=== PATIENT | female | born 1955 | race Caucasian/White ===

== ENCOUNTER 2024-04-12 09:10 | Emergency (ER) | payer OTHER, MEDICARE ==
[~2024-04-12] VITALS: Ht 167.6 cm; Wt 109.8 kg
== END 2024-04-12 11:09 | disposition home or self-care (01) ==
LOC: ER 09:10
DX: S80.02XA Contusion of left knee, initial encounter (principal); I10 Essential (primary) hypertension; W01.0XXA Fall on same level from slipping, tripping and stumbling without subsequent striking against object, initial encounter
CPT/HCPCS: 73560-LT; 99283-25

== ENCOUNTER 2024-04-14 07:09 | Inpatient (IN) | payer MEDICARE ==
[~2024-04-14] VITALS: Ht 167.6 cm; Wt 107.0 kg
[2024-04-14] MEDS ORDERED: ACET325 PO (07:39)
[2024-04-14] MEDS ORDERED: Ipratropium/Albuterol SulF 2.5-0.5MG/3 ML Amp INH ONE (08:30)
[2024-04-14] MEDS ORDERED: MethylPREDNISolone Sod Succ 125 MG Vial IV ONE (08:30)
[2024-04-14] MEDS ORDERED: Morphine Sulfate 4 MG/1 ML Injection IV ONE (08:35)
[2024-04-14 09:48] LABS: Source, Urine Clean Catch
[2024-04-14 09:50] LABS: BASOPHILS ABSOLUTE AUTO 0.04 K/mm3 (0.00-0.23); BASOPHILS PERCENT AUTO 1 % (0-2); EOSINOPHILS ABSOLUTE AUTO 0.01 K/mm3 (0.00-0.68); EOSINOPHILS PERCENT AUTO 0 % (0-6); Hematocrit 38.7 % (33.0-51.0); Hemoglobin 12.2 g/dL (11.5-16.0); IMMATURE GRAN ABSOLUTE AUTO 0.08 K/mm3 (0.00-0.10); IMMATURE GRAN PERCENT AUTO 1 % (0-1); LYMPHOCYTES ABSOLUTE AUTO 1.41 K/mm3 (0.84-5.20); LYMPHOCYTES PERCENT AUTO 18 % (21-46); MONOCYTES ABSOLUTE AUTO 0.61 K/mm3 (0.16-1.47); MONOCYTES PERCENT AUTO 8 % (4-13); Mean Corpuscular HGB 32.2 pg (26.0-34.0); Mean Corpuscular HGB Conc 31.5 g/dL (31.5-36.5); Mean Corpuscular Volume 102 fL (80-100); Mean Platelet Volume 9.3 fL (9.1-12.4); NEUTROPHILS ABSOLUTE AUTO 5.81 K/mm3 (1.96-9.15); NEUTROPHILS PERCENT AUTO 73 % (41-73); NRBC ABSOLUTE 0.08 K/mm3 (0.00-0.02); Platelet Count 204 K/mm3 (150-400); RDW Coefficient Variation 15.6 % (11.7-14.2); RDW Standard Deviation 57.4 fL (35.1-46.3); Red Blood Cell Count 3.79 M/mm3 (3.80-5.20); White Blood Cell Count 7.96 K/mm3 (4.00-11.30)
[2024-04-14 09:51] LABS: Appearance, Urine Clear (Clear); Bilirubin, Urine Neg (Neg); Blood, Urine 1+ (Neg); Color, Urine Yellow (P-Yellow); Glucose Qualitative, Urine Neg (Neg); Ketones, Urine 1+ (Neg); Leukocyte Esterase, Urine Neg (Neg); Nitrite, Urine Neg (Neg); Protein, Urine 2+ (Neg); Urobilinogen, Urine 1+ (Normal)
[2024-04-14 10:00] LABS: Amorphous Light (0-Heavy); Bacteria Few /hpf; Hyaline Casts 0-2 /lpf (0-2); Squamous Epithelial Cells Few /hpf (Few); White Blood Cells, Urine 0-2 /hpf (0-5)
[2024-04-14 10:08] LABS: Influenza A, PCR NEGATIVE (NEGATIVE); Influenza B, PCR NEGATIVE (NEGATIVE); Resp Syncytial Virus, PCR NEGATIVE (NEGATIVE); SARS-Cov-2 (COVID-19) PCR, MMC NEGATIVE (NEGATIVE)
[2024-04-14 10:08] LABS: Bun/Creatinine Ratio 32.2 (12.0-20.0); Calcium, Blood 10.9 mg/dL (8.5-10.1); Creatinine, Blood 0.87 mg/dL (0.40-1.00); Potassium, Blood 3.5 mmol/L (3.5-5.5)
[2024-04-14] MEDS ORDERED: LORazepam 1 MG Tab PO ONE (11:20)
[2024-04-14] MEDS ORDERED: OxyCODONE 7.5 mg/Acetam 325 mg TABLET PO ONE (11:20)
[2024-04-14] MEDS ORDERED: Lactated Ringer's 1,000 ML IV ONE (15:10)
[2024-04-14] MEDS ORDERED: Lactated Ringer's 1,000 ML IV SCH (15:20)
[2024-04-14] MEDS ORDERED: FLU VACC TS2024-25(6MOS UP)/PF 45 MCG/0.5 ML SYRINGE IM PRN (15:25)
[2024-04-14] MEDS ORDERED: Naloxone HCl 0.4MG / ML 1ML Vial IV PRN (15:40)
[2024-04-14 16:09] LABS: Base Excess Venous -0.1 mmol/L; Bicarbonate Venous 24.7 mmol/L (24.0-30.0); pH Blood Venous 7.45 (7.34-7.37)
[2024-04-14] MEDS ORDERED: Ipratropium/Albuterol SulF 2.5-0.5MG/3 ML Amp INH SCH (16:35)
[2024-04-14] MEDS ORDERED: Dexamethasone Sodium Phosphate 4 MG/ML 1ML Vial IV SCH (18:00)
[2024-04-14 18:06] VITALS: BP 199/88
[2024-04-14] MEDS ORDERED: Lisinopril2.5 MG (18:07)
[2024-04-14 18:21] VITALS: BP 196/89
[2024-04-14] MEDS ORDERED: Labetalol HCL 5 MG/ML 4ML Injection (Single Dose) IV PRN (18:30)
[2024-04-14 18:45] VITALS: BP 181/79
--- NOTE | 2024-04-14 18:50 | NUR ---
PATIENT ADMIT TO PCU 03 AT 1750. ABLE TO ANSWER ALL ORIENTING QUESTIONS. PERRLA. FOLLOWING ALL SIMPLE COMMANDS. AT TIMES SAYING NONSENSICAL COMMENTS NOT RELATING TO TOPIC OR QUESTIONS ASKED. DAUGHTER AT BEDSIDE STATES HER MENTATION HAS BEEN "OFF" THE LAST COUPLE OF DAYS AND SEEMS TO BE WORSENING. PATIENT ABLE TO TELL ME DETAILS OF WHY SHE IS HERE BUT GETS SIDE TRACKED MID CONVERSATION OR FORGETS WHAT SHE IS SAYING. OVERALL WEAK AND PAINFUL WITH MOVEMENTS. DENIES PAIN WHEN LAYING ON BACK IN BED. ON ROOM AIR AT THIS TIME SATING 95-96%. SOB WITH MOVEMENTS AND TALKING. LUNGS SOUNDS CLEAR AND DIM IN BASES. STATES SHE HAD RECENT COUGH. NO COUGH NOTED AT THIS TIME. TELE SHOWING SR WITH HR 80-90'S. SBP 190'S. PATIENT STATES SHE HAS HISTORY OF HIGH BLOOD PRESSURE AND STOPPED TAKING HER HOME LISINOPRIL WEEKS AGO. PPP. LR INFUSING PER EMAR. BRUISING TO RIGHT LOWER EXTREMITIY. DR. SHARMA CALLED TO UPDATED ON ELEVATED BLOOD PRESSURE. THIS RN DISCUSSED VITALS, AND CURRENT MENTATION. DR. SHARMA TO PLACE ORDERS. IV LABETALOL GIVEN. INTIAL SBP POST LABETOLOL INFUSION 180'S. BOWEL TONES PRESENT. PATIENT DENIES ISSUES WITH SWALLOWING. INCONTINENT AT TIMES. PUREWICK IN PLACE WELL ATTENDS. NPO AT MIDNIGHT FOR BIOPSY IN AM. ORIENTED TO ROOM AND UNIT. BED ALARM ON FOR SAFETY. LOULOU HEADED BACK TO [place] THIS EVENING. DAUGHTER IS LOCAL AND PLANS TO VISIT AGAIN TOMORROW AFTER WORK. CALL LIGHT IN REACH. PATIENT LAYING IN BED AT THIS TIME, DENIES NEEDS.
[2024-04-14] MEDS ORDERED: Lisinopril 20 MG Tab PO SCH (19:00)
[2024-04-14] MEDS ORDERED: FentaNYL Citrate 50 MCG/ML 2 ML Injection IV PRN (19:50)
[2024-04-14 19:57] VITALS: BP 176/72
[2024-04-14 23:59] VITALS: BP 167/93
[2024-04-15] VITALS (7 sets, daily range): BP systolic 148–188; BP diastolic 67–107
--- NOTE | 2024-04-15 01:19 | NUR ---
PT AGITATION INCREASING. PT NOW PARANOID. VISUAL HALLUCINATIONS STILL PRESENT. NEW AUDITORY HALLUCINATIONS. PT STILL ORIENTED TO SELF. MULTIPLE ATTEMPTS ENCOURAGING PATIENT TO REST UNSUCCESSFUL. PT HAS INTERMITTENT WORD SALAD AND CONFUSED/TANGENTIAL SPEECH. PT PULLED OUT IV, REMOVED TELEMETRY MULTIPLE TIMES, REMOVED SPO2 SENSOR MULTIPLE TIMES. 1:1 SITTER REQUESTED.
--- NOTE | 2024-04-15 03:10 | NUR ---
PT HAS HTN 188/84, HR 103 AND IS GIVEN LABETOLOL PER ORDER.
[2024-04-15] MEDS ORDERED: QUEtiapine Fumarate 25 MG Tab PO ONE (03:30)
[2024-04-15 04:52] LABS: BASOPHILS ABSOLUTE AUTO 0.01 K/mm3 (0.00-0.23); BASOPHILS PERCENT AUTO 0 % (0-2); EOSINOPHILS ABSOLUTE AUTO 0.02 K/mm3 (0.00-0.68); EOSINOPHILS PERCENT AUTO 0 % (0-6); Hemoglobin 11.1 g/dL (11.5-16.0); IMMATURE GRAN PERCENT AUTO 1 % (0-1); LYMPHOCYTES ABSOLUTE AUTO 0.66 K/mm3 (0.84-5.20); LYMPHOCYTES PERCENT AUTO 9 % (21-46); MONOCYTES ABSOLUTE AUTO 0.19 K/mm3 (0.16-1.47); MONOCYTES PERCENT AUTO 3 % (4-13); Mean Corpuscular HGB 32.1 pg (26.0-34.0); Mean Corpuscular HGB Conc 32.6 g/dL (31.5-36.5); Mean Corpuscular Volume 98 fL (80-100); NEUTROPHILS PERCENT AUTO 87 % (41-73); NRBC ABSOLUTE 0.06 K/mm3 (0.00-0.02); NRBC Auto 0.8 /100 WBC (0.0-0.2); Platelet Count 188 K/mm3 (150-400); RDW Coefficient Variation 15.5 % (11.7-14.2); RDW Standard Deviation 54.7 fL (35.1-46.3); Red Blood Cell Count 3.46 M/mm3 (3.80-5.20); White Blood Cell Count 7.38 K/mm3 (4.00-11.30)
[2024-04-15 05:14] LABS: Albumin, Blood 3.1 g/dL (3.4-5.0); Albumin/Globulin Ratio 0.7 (0.8-1.8); Bilirubin, Total 0.5 mg/dL (0.1-1.0); Bun/Creatinine Ratio 30.6 (12.0-20.0); Calcium, Blood 10.3 mg/dL (8.5-10.1); Creatinine, Blood 0.69 mg/dL (0.40-1.00); Globulin, Blood 4.3 g/dL (2.2-4.0); Potassium, Blood 3.3 mmol/L (3.5-5.5); Total Protein, Blood 7.4 g/dL (6.4-8.2)
[2024-04-15] MEDS ORDERED: Potassium Chloride 10 Meq Tablet SA PO ONE (05:40)
--- NOTE | 2024-04-15 06:37 | NUR ---
PT AOX3 AT START OF SHIFT, CALM AND COOPERATIVE, THOUGH VISUAL HALLUCINATION PRESENT. THIS RN TOLD PT THAT THEY WOULD REORIENT PT TO VISUAL DISTURBANCE AND CONFIRM OR DENY PRESENCE OF ANY VISUAL PT HAD QUESTIONS ABOUT, SUCH BUGS ON THE WALL. PT WAS AGREEABLE TO THIS. SHIFT PROGRESSED PT BECOME MORE PARANOID, FREQUENCY OF VISUAL HALLUCINATIONS INCREASED, AUDITORY HALLUCINATIONS PRESENT, PT LESS COOPERATIVE. PT PULLED OUT IV LINE, REMOVED TELEMETRY AND PUREWICK TUBING MULTIPLE TIMES. PT ALSO DISASSEMBLED HEARING AIDS THAT STAFF ATTEMPTED TO REASSEMBLE. 1:1 SITTER PLACED ON PT. PT DID REFUSE PO SEROQUEL BUT DID CONTINUE TO TAKE IV DEXAMETHASONE AND PO KCL. PT WAS CALLED AT ONE TIME D/T PT YELLING FOR THE POLICE OR FBI. PT DID SEEM TO CALM THE PATIENT OVER THE PHONE. PT DID HAVE ONE EPISODE OF HTN REQUIRING PRN MEDICATION, WHICH DID RESOLVE HTN TO ACCEPTABLE LEVELS. PT CONTINUES TO BE WEAK TO LEFT LEG AND ABLE TO MOVE RIGHT LEG MUCH EASIER. UPPER EXTREMITIES WEAK B/L.
[2024-04-15] MEDS ORDERED: Lisinopril 20 MG Tab PO ONE (07:45)
[2024-04-15] MEDS ORDERED: Enoxaparin 40 MG/0.4 ML SYR SC SCH ×3 (09:00→12:00)
--- NOTE | 2024-04-15 10:13 | NUR ---
AM NOTE: PATIENT AWAKE AND SITTING UP IN BED UPON SHIFT CHANGE. THIS RN ENTERS ROOM AND PATIENT SMILES AND SAYS VEE. PATIENT ABLE TO TELL ME HER NAME, , WHERE SHE IS AND SOME DETAILS OF WHY SHE IS HERE. PATIENT TALKS SHE HAS POOR ATTENTION SPAN, GETS OFF ON TANGETS AND AT TIMES NONSENSICAL COMMENTS. NOT RETAINING SOME INFORMATION AND ASKING REPETATIVE QUESTIONS. HAVING CONVERSATIONS WITH SELF. HAVING BOTH AUDITORY AND VISUAL HALLUCINATIONS OF RATS CRAWLING AND TALKING TO HER IN TREE OUTSIDE HER WINDOW. AT TIMES PARANOID. DOES WELL WITH 1:1 SITTER AT BEDSIDE. PERRLA, WEARING GLASSES. DENIES NUMBNESS/TINGLING. INTERMIT BACK PAIN. FOLLOWING ALL SIMPLE COMMANDS SUCH FACIAL MOVMENTS AND UPPER AND LOWER EXTREMITY MOVEMENTS. NO FACIAL DROOP OR SLURRED SPEECH. OVERALL WEAK WITH BILATERAL APPLICATION SECURITY ARCHITECT STRENGTH. MOVING LEGS EQUALLY, FAVORING RIGHT LEG WITH HISTORY OF LEFT KNEE SURGERY AND OCCASIONAL PAIN IN LEFT KNEE. BEDREST AT THIS TIME. Q2 TURNS WITH LOG ROLLING. TELE SHOWING SR WITH 1ST DEGREE AV BLOCK. HR 90-110'S. SBP 160'S. DENIES CHEST PAIN/PRESURE/PALPITATIONS. PPP. NO EDEMA NOTED. IV SALINE LOCKED. ON ROOM AIR SATING ABOVE 95%. LUNGS SOUNDS CLEAR AND DIM IN BASES. AT TIMES SOB WITH MOVEMENT OR EXCESSIVE TALKING. RT IN FOR BREATHING TREATMENTS. DENIES COUGH. BOWEL TONES PRESENT IN ALL FOUR QUADRANTS. DENIES ABDOMINAL PAIN/NAUSEA. STATES SHE HAS OCCASIONAL "HUNGER PAINS". NPO AT THIS TIME PENDING POSSIBLE BIOPSY OF LEFT BREAST. PUREWICK IN PLACE WELL ATTENDS. BED BATH THIS AM WITH PUREWICK CHANGE. SMALL EXCORATION TO LEFT GROIN. CALL LIGHT IN REACH. SITTER AT BEDSIDE.
--- NOTE | 2024-04-15 11:47 | NUR ---
[facility] CALLED, THIS RN PROVIDED UPDATE WITH PATIENT PERMISSION. THIS AFTERNOON WALLACE COMPLAINING OF 10/10 BACK PAIN. MEDICATED PER EMAR WITH GOOD RELIEF WELL REPOSITIONING. AFTERNOON VITALS STABLE WITH ELEVATED SBP IN THE 160'S. DENIES PAIN AT THIS TIME. SITTER REMAINS AT BEDSIDE. PUREWICK PUTTING OUT SLIGHTLY MARTHA COLORED URINE. ATTENDS CLEAN AND DRY. STILL REMAINS NPO, PENDING POSSIBLE LEFT BREAST BIOPSY.
--- NOTE | 2024-04-15 12:52 | NUR ---
DAUGHTER YOSEF BY THIS AFTERNOON FOR HER LUNCH BREAK. DR. SHARMA BY TO UPDATE DAUGHTER. PLAN FOR PHYSICAL THERAPY THIS AFTERNOON. PATIENT EATING LUNCH AT THIS TIME. DENIES PAIN.
[2024-04-15] MEDS ORDERED: NS 1,000 ML IV SCH (15:10)
--- NOTE | 2024-04-15 15:55 | NUR ---
GOALS OF CARE/SUPPORTIVE VISIT MET WITH PT AND DTRYONIS AT BEDSIDE. PT LIKES TO BE ADDRESSED "WALLACE". WALLACE ASKED IF HER MEATLOAF HAD SUSAN ON IT. CLARIFIED THERE IS BROWN GRAVY ON TOP. "OH, I SEE, IT HAS M&M'S IN THERE. WALLACE THEN TURNS CONVERSATION TO "SOMEONE STOLE MY PHONE AND DELETED ALL MY FAVORITES". PT'S PHONE WAS ON HER BEDSIDE TABLE. WALLACE STATED SEVERAL TIMES, "I ALREADY HAD A BIOPSY. LOOK." SHE PULLED THE TOP LEFT SIDE OF HER GOWN DOWN TO REVEAL A RAISED LUMP ON THE LEFT SIDE OF HER CHEST. THIS RN REASSURED WALLACE THERE WAS NO INCISION OR BIOPSY AT THE SITE OF HER LUMP. PT'S DTRYONIS ALSO CLARIFIED WITH PT, NO BIOPSY HAS BEEN DONE. THIS PC RN PHONED PT'S , LOULOU TO REVIEW GOALS OF CARE AND CLARIFY CODE STATUS. LOULOU REQUESTS WALLACE'S CODE STATUS BE CHANGED TO DNR. REQUEST REVIEWED WITH PROVIDER. ORDER OBTAINED FOR DNR. LOULOU WOULD LIKE TO PROCEED WITH BREAST TISSUE BX. PRIMARY RN UPDATED.
--- NOTE | 2024-04-15 17:03 | NUR ---
SHIFT SUMMARY: NO ACUTE CHANGES. PATIENT MENTATION AND NEURO REMAIN UNCHANGED WITH INTERMIT PARANOIA AND VISUAL/AUDITORY HALLUCINATIONS. STEPDAUGHTER IN TO VISIT THIS EVENING AND THIS RN PROVIDED ADDITIONAL UPDATE. PALLIATIVE CARE IN THIS AFTERNOON AND CONFERENCE CALL COMPLETED WITH . CONTINUED PLANS FOR BIOPSY. SITTER REMAINS AT BEDSIDE. NS INFUSING PER EMAR. CALL LIGHT IN REACH. PATIENT DENIES NEEDS AT THIS TIME.
[2024-04-15] MEDS ORDERED: OLANZapine ODT 5 MG Tab MM PRN (17:45)
[2024-04-16] VITALS (8 sets, daily range): BP systolic 165–192; BP diastolic 57–99
--- NOTE | 2024-04-16 06:48 | NUR ---
Shift Summary No acute changes. Pt mentation fairly clear at the start of the night but she did get more confused and delusional as the night went on. She tried to get out of bed a few times but I was able to orient her that she needs to stay in bed without our help for her safety. She was hearing voices outside her room beckoning her to come over. She is AOx3-4 with confusion and hallucinations. She did use the BSC with two people assisting her on a pivot transfer with FWW and GB. She only slept for less than 1 hour total, and per report she did not sleep during the day or much last night. She spoke to me about not wanting to be DNR, however given her mental state I will just pass this information onto day shift. Her blood pressure was elevated t/o the night, but her systolic pressure did reach the 180 paramater to give her only blood pressure medication: PRN Labetelol. Her BP has been elevated to at least 162/75 since admit. Discussed this with processing operator.
[2024-04-16 07:08] LABS: BASOPHILS ABSOLUTE AUTO 0.03 K/mm3 (0.00-0.23); BASOPHILS PERCENT AUTO 0 % (0-2); EOSINOPHILS ABSOLUTE AUTO 0.07 K/mm3 (0.00-0.68); EOSINOPHILS PERCENT AUTO 1 % (0-6); Hematocrit 34.6 % (33.0-51.0); Hemoglobin 11.4 g/dL (11.5-16.0); IMMATURE GRAN ABSOLUTE AUTO 0.16 K/mm3 (0.00-0.10); IMMATURE GRAN PERCENT AUTO 2 % (0-1); LYMPHOCYTES ABSOLUTE AUTO 0.71 K/mm3 (0.84-5.20); LYMPHOCYTES PERCENT AUTO 7 % (21-46); MONOCYTES ABSOLUTE AUTO 0.65 K/mm3 (0.16-1.47); MONOCYTES PERCENT AUTO 7 % (4-13); Mean Corpuscular HGB 32.9 pg (26.0-34.0); Mean Corpuscular HGB Conc 32.9 g/dL (31.5-36.5); Mean Corpuscular Volume 100 fL (80-100); NEUTROPHILS ABSOLUTE AUTO 8.11 K/mm3 (1.96-9.15); NEUTROPHILS PERCENT AUTO 83 % (41-73); Platelet Count 212 K/mm3 (150-400); RDW Coefficient Variation 15.3 % (11.7-14.2); RDW Standard Deviation 55.8 fL (35.1-46.3); Red Blood Cell Count 3.46 M/mm3 (3.80-5.20); White Blood Cell Count 9.73 K/mm3 (4.00-11.30)
[2024-04-16 07:29] LABS: Albumin/Globulin Ratio 0.7 (0.8-1.8); Bilirubin, Total 0.4 mg/dL (0.1-1.0); Bun/Creatinine Ratio 38.1 (12.0-20.0); Calcium, Blood 9.7 mg/dL (8.5-10.1); Creatinine, Blood 0.76 mg/dL (0.40-1.00); Globulin, Blood 4.2 g/dL (2.2-4.0); Potassium, Blood 3.6 mmol/L (3.5-5.5); Total Protein, Blood 7.2 g/dL (6.4-8.2)
[2024-04-16] MEDS ORDERED: Lisinopril 20 MG Tab PO SCH (09:00)
[2024-04-16] MEDS ORDERED: HYDROcodone 5-APAP 325 TAB PO PRN (12:00)
--- NOTE | 2024-04-16 14:46 | NUR ---
Spiritual care visit conducted. Patient is sitting on a chair and alert. She talks about her knee inury for quite some time. I ask her about the recent diagnosis and she tells me that she has breast cancer that is metastatic to her spine and bones. She states that she is having trouble processing this news, is silent for a minute and then shifts the topic to he spouse and his dtr and gdtrs. She then tells me that RN Kristi is her dtr and is just shy about coming into the room. The patient bounces back and forth from clear and present statements to random thoughts that don't fit in the conversation very easily. I listened empathically, reinforce heplful perspectives and provided a calming presence. The interventions had a good result with patient showing signs of greater peace.
[2024-04-16] MEDS ORDERED: AmLODIPine Besylate 5 MG Tab PO SCH (16:55)
--- NOTE | 2024-04-16 18:16 | NUR ---
PT SUMMARY; NO ACUTE CHANGE FOR THE SHIFT, PT REMAINED CONFUSED, HALLUCINATES AT TIMES, FLIGHT OF IDEAS. PT IS REDIRECTABLE. VITALS HRR SR 90'S, CURRENTLTY NO TELE PT TRANSITIONED TO MEDICAL STATUS, SATS ABOVE 95% ON RA, SBP ELEVATED 140-180'S, PRN LABETALOL GIVEN X1, PT STARTED AMLODIPINE AND LISINOPRIL. MD AWARE OF THE BLOOD PRESSURE TREND. FAMILY BROTHER CAME IN TO SEE PT TODAY. PT ABLE TO WORK WIHT PHYSICAL THERAPIST PT ABLE TO AMBULATE VIA WALKER AND GAIT BELT 1-2PA. PT HAD A SHOWER TODAY AND HAS BEEN UP IN THE CHAIR MOST OF THE SHIFT. PLAN TO SCHEDULE PT OUTPT BIOPSY. PER SOLAR SALES CONSULTANT PT HAS BEEN ACCEPTED TO [facility] AWAITING FOR INSURANCE AUTHORIZATION, DAUGHTER TO VISIT THIS AFTERNOON. PT HAS BEEN MEDICATED FOR PAIN TWICE, PT STARTED ON PO PAIN MEDICINE AND WAS EFFETCIVE. NO OTHER ISSUES REPORTED FOR THE SHIFT. CALL LIGHTS IN REACH WILL REPORT TO ONCOMING SHIFT
[2024-04-16] MEDS ORDERED: Albuterol 2.5 MG/3 ML VIAL INH PRN (20:05)
--- NOTE | 2024-04-16 20:42 | NUR ---
ASSUMPTION OF CARE NOTES PT ALERT AND ORIENTED TO HERSELF, PLACE, AND DAY OF THE WEEEK, BUT WAS UNSURE OF HER BIRTHDAY. DENIES VISUAL HALLUCINATIONS AT THIS TIME, BUT FLIGHT OF IDEAS NOTED WITH VARIOUOS SUBJECTS. CAN BE IMPULSIVE WITH INCREASED CONFUSION AT TIMES, BUT REDIRECTABLE. CARDIAC, MED NO TELE WITH HR RANGING 100-110'S. DENIES ANY CP, DIZZINESS, OR PALPTIATIONS. SBP REMAINS ELEVATED RANGING 160-170'S. PRN LABETALOL FOR SBP >180. RESPIRATORY, DENIES SOB OR DYSPNEA AT REST BUT ENDORSES SOME INCREASED WORK OF BREATHING WITH MILD EXERTION. MAINTAINS SPO2 >90% ON RA. GI/, DENIES ANY N/V/D OR ABD TENDERNESS AT THIS ITME. ABLE TO AMBULATE TO BSC, BUT INTERMITTENT INCONTINENCE NOTED. DENIES N/T OR UNILATERAL WEAKNESS. C/O OF GENERAL WEAKNESS DUE TO DECONDITIONING. SKIN OVERALL C/D/I, SOME MINOR SCATTERED BRUISING NOTE FROM VARIOUS BLOOD DRAWS AND IV STARTS. 1xPIV, FLUSHES WELL. WILL CONTINUE TO PROCESS MD ORDERS. RUPESH ALSTON OF THIS NOTE.
[2024-04-17 05:57] VITALS: BP 202/105
--- NOTE | 2024-04-17 06:44 | NUR ---
SHIFT SUMMARY PT TRANSFERED TO ROOM 353 FROM PCU AROUND 2330. PT IS A&O TO SELF, PLEASANT AND APPRECIATIVE. HTN 202/105, HR 84 BPM, AFEBRILE, SATS >95% ON RA. C/O PAIN IN HER BACK AND BRA LINE IN THE FRONT, MEDICATED WITH PRN 5MG PO NORCO. TOLERATING A REG DIET. X2 ASSIST WITH FWW TO BSC. VOIDING ADEQUATE AMOUNTS OF MARTHA COLORED, CONCENTRATED, MALODOROUS URINE. NO BM THIS SHIFT. BED IN LOWEST POSITION, CALL LIGHT WITHIN REACH. BED ALARM SET FOR PT'S SAFETY.
[2024-04-17] MEDS ORDERED: HydrALAZINE HCl 20 MG / ML 1ML Vial IV PRN (07:30)
[2024-04-17 07:39] VITALS: BP 158/103
[2024-04-17 07:52] LABS: BASOPHILS ABSOLUTE AUTO 0.03 K/mm3 (0.00-0.23); BASOPHILS PERCENT AUTO 0 % (0-2); EOSINOPHILS ABSOLUTE AUTO 0.02 K/mm3 (0.00-0.68); EOSINOPHILS PERCENT AUTO 0 % (0-6); Hematocrit 35.3 % (33.0-51.0); Hemoglobin 11.5 g/dL (11.5-16.0); IMMATURE GRAN ABSOLUTE AUTO 0.24 K/mm3 (0.00-0.10); IMMATURE GRAN PERCENT AUTO 2 % (0-1); LYMPHOCYTES ABSOLUTE AUTO 0.87 K/mm3 (0.84-5.20); LYMPHOCYTES PERCENT AUTO 8 % (21-46); MONOCYTES ABSOLUTE AUTO 0.62 K/mm3 (0.16-1.47); MONOCYTES PERCENT AUTO 6 % (4-13); Mean Corpuscular HGB Conc 32.6 g/dL (31.5-36.5); Mean Corpuscular Volume 98 fL (80-100); Mean Platelet Volume 8.8 fL (9.1-12.4); NEUTROPHILS ABSOLUTE AUTO 8.64 K/mm3 (1.96-9.15); NEUTROPHILS PERCENT AUTO 83 % (41-73); NRBC ABSOLUTE 0.08 K/mm3 (0.00-0.02); NRBC Auto 0.8 /100 WBC (0.0-0.2); Platelet Count 222 K/mm3 (150-400); RDW Standard Deviation 53.9 fL (35.1-46.3); Red Blood Cell Count 3.59 M/mm3 (3.80-5.20); White Blood Cell Count 10.42 K/mm3 (4.00-11.30)
[2024-04-17] MEDS ORDERED: HYDROcodone 5-APAP 325 TAB PO PRN (07:55)
[2024-04-17 08:14] LABS: Albumin, Blood 3.4 g/dL (3.4-5.0); Albumin/Globulin Ratio 0.9 (0.8-1.8); Bilirubin, Total 0.5 mg/dL (0.1-1.0); Bun/Creatinine Ratio 42.4 (12.0-20.0); Calcium, Blood 9.4 mg/dL (8.5-10.1); Creatinine, Blood 0.71 mg/dL (0.40-1.00); Globulin, Blood 3.9 g/dL (2.2-4.0); Potassium, Blood 3.8 mmol/L (3.5-5.5); Total Protein, Blood 7.3 g/dL (6.4-8.2)
[2024-04-17] MEDS ORDERED: AmLODIPine Besylate 5 MG Tab PO SCH ×2 (09:00)
[2024-04-17] MEDS ORDERED: Amlodipine Besyl5 MG PO (11:18)
[2024-04-17] MEDS ORDERED: LISI20 PO (11:19)
[2024-04-17] MEDS ORDERED: Norco 5-325 Ta1 EACH PO (11:19)
[2024-04-17] MEDS ORDERED: DECADRON4 M1 PO (11:20)
[2024-04-17] MEDS ORDERED: AMLO10 PO (11:21)
[2024-04-17 11:23] LABS: SARS-Cov-2 (COVID-19) PCR, MMC NEGATIVE (NEGATIVE)
[2024-04-17 11:49] VITALS: BP 160/83
[2024-04-17] MEDS ORDERED: dexAMETHasone 4 MG TAB PO SCH (12:00)
--- NOTE | 2024-04-17 14:18 | NUR ---
DISCHARGED VIA WHEELCHAIR WITH [facility] STAFF TO BE TRANSFERRED TO [facility]. PT IN AGREEMENT WITH PLAN TO TRANSFER TO REHAB
--- NOTE | 2024-04-17 15:28 | NUR ---
RICH FROM [facility] CALLED TO GET REPORT ON THE PATIENT. REPORT GIVEN. LET RICH KNOW THAT THERE IS A NOTE FROM PALLATIVE CARE THAT THEY SPOKE WITH THE PATIENT'S AND GOT PATIENT'S CODE STATUS CHANGED TO DNR.
== END 2024-04-17 14:17 | DRG 91 ==
LOC: ER 07:09 → PCU 07:10 → MEDS 04-16 23:40
PROVIDERS: Emergency Medicine; Internal Medicine; ADMIT Hospitalist
DX: G95.20 Unspecified cord compression (principal); G92.8 Other toxic encephalopathy; C79.51 Secondary malignant neoplasm of bone; M84.58XA Pathological fracture in neoplastic disease, other specified site, initial encounter for fracture; I10 Essential (primary) hypertension; R32 Unspecified urinary incontinence; Z96.652 Presence of left artificial knee joint; N63.22 Unspecified lump in the left breast, upper inner quadrant; J45.909 Unspecified asthma, uncomplicated; E83.52 Hypercalcemia
CPT/HCPCS: 0241U; 36415; 51798; 70450; 71045; 71260; 72128; 72131; 74177; 80048; 80053; 81001; 82803; 82947; 83880; 84484; 85025; 85379; 93005; 93010; 94640; 94664; 94762; 96361; 96374-59; 96375-59; 97116; 97162; 97530; 99285-25; A9270; G0378; J1100; J1650; J2270; J2310; J2919; J3010; J7030; J7120; Q9967; U0002

== ENCOUNTER 2024-04-18 07:16 | Emergency (ER) | payer MEDICARE ==
[~2024-04-18] VITALS: Ht 167.6 cm; Wt 109.8 kg
[~2024-04-18 07:16] MED LIST: ACET325 PO; AMLO10 PO; Amlodipine Besyl5 MG PO; DECADRON4 M1 PO; LISI20 PO; Lisinopril2.5 MG; Norco 5-325 Ta1 EACH PO
[2024-04-18] MEDS ORDERED: Lisinopril 20 MG Tab PO ONE (07:35)
[2024-04-18] MEDS ORDERED: AmLODIPine Besylate 5 MG Tab PO ONE (07:35)
[2024-04-18] MEDS ORDERED: Ipratropium/Albuterol SulF 2.5-0.5MG/3 ML Amp INH ONE (07:35)
== END 2024-04-18 11:38 | disposition home or self-care (01) ==
LOC: ER 07:16
DX: I10 Essential (primary) hypertension (principal); J44.89 Other specified chronic obstructive pulmonary disease; Z79.899 Other long term (current) drug therapy
CPT/HCPCS: 71045; 93005; 93010; 94640; 94664; 99284-25; A9270